=== PATIENT | male | born 1965 | race Caucasian/White ===

== ENCOUNTER 2016-10-18 09:49 | Emergency (ER) | payer BC ==
[2016-10-18 09:57] VITALS: BP 159/95
--- NOTE | 2016-10-18 10:55 | RAD ---
INDICATION: Left shoulder pain one day after a fall COMPARISON: None. TECHNIQUE: 4 views of the left shoulder were obtained. FINDINGS: The adequately corticated bones are in normal alignment. Joint spaces appear maintained. No fracture, dislocation or focal bony abnormality is seen. IMPRESSION: Normal radiograph of the left shoulder. If the patient's symptoms persist, follow-up imaging is recommended.
--- NOTE | 2016-10-18 10:58 | UC ---
Shoulder Pain HPI - HPI Summary HPI Summary: FELL AND LANDED DIRECTLY ONTO LEFT SHOULDER YESTERDAY WHILE UNLOADING LUMBER. HAS PAIN WITH ACTIVE MVMT LEFT SHOULDER. IS ABLE TO MOVE HIS SHOULDER IF HE USES HIS RIGHT ARM TO PASSIVELY MOVE HIS LEFT. NO SWELLING OR BRUISING. NO NUMBNESS OR TINGLING. - History of Current Complaint Chief Complaint: UCUpperExtremity Stated Complaint: SHOULDER COMPLAINT Time Seen by Provider: 10/18/16 10:23 Hx Obtained From: Patient Onset/Duration: Sudden Onset, Lasting Hours, Still Present Timing: Constant Severity Initially: Moderate Severity Currently: Moderate Location Of Pain: Is Discrete @ - LEFT SHOULDER Pain Intensity: 7 Pain Scale Used: 0-10 Numeric Character: Sharp Aggravating Factor(s): Movement Alleviating Factor(s): Rest Associated Signs And Symptoms: Positive: Negative Related History: Dominant Hand Right - Allergies/Home Medications Allergies/Adverse Reactions: Allergies Allergy/AdvReac Type Severity Reaction Status Date / Time No Known Allergies Allergy Verified 02/11/15 15:09 PMH/Surg Hx/FS Hx/Imm Hx Cardiovascular History: Hypertension - Surgical History Surgical History: None - Family History Known Family History: Positive: Hypertension - Social History Alcohol Use: None Substance Use Type: None Smoking Status (MU): Never Smoked Tobacco - Immunization History Most Recent Influenza Vaccination: 2013 Most Recent Tetanus Shot: unk Most Recent Pneumonia Vaccination: <5YEARS Review of Systems Constitutional: Negative Skin: Negative Respiratory: Negative Cardiovascular: Negative Gastrointestinal: Negative Musculoskeletal: Arthralgia, Decreased ROM, Myalgia All Other Systems Reviewed And Are Negative: Yes Physical Exam Triage Information Reviewed: Yes Appearance: Well-Appearing, No Pain Distress, Well-Nourished Vital Signs: Initial Vital Signs Temp 98.4 F 10/18/16 09:55 Pulse 74 10/18/16 09:55 Resp 20 10/18/16 09:55 BP 159/95 10/18/16 09:55 Pulse Ox 100 10/18/16 09:55 Vital Signs Reviewed: Yes Eyes: Positive: Conjunctiva Clear ENT: Positive: Hearing grossly normal Neck: Positive: Supple Respiratory: Positive: No respiratory distress, No accessory muscle use Cardiovascular: Positive: Pulses Normal Abdomen Description: Positive: Soft Musculoskeletal: Positive: No Edema, ROM Limited @ - LEFT SHOULDER LIMITIED WITH ACTIVE ROM. MUCH BETTER WITH PASSIVE ROM. NEG YERGASON. POSITIVE SPEEDS. Neurological: Positive: Alert Psychological: Positive: Age Appropriate Behavior Skin: Negative: rashes Diagnostics - Radiology LEFT SHOULDER XRAY Xray Interpretation: No Acute Changes Radiology Interpretation Completed By: Radiologist Shoulder Course/Dx - Course Course Of Treatment: XRAY UNREMARKABLE. SLING NEEDED. NOTE FOR WORK PROVIDED. FOLLOW-UP PCP OR ORTHO IF NOT IMPROVING. - Differential Dx/Diagnosis Differential Diagnosis/HQI/PQRI: AC Separation, Arthritis, Bursitis, Contusion, Rotator Cuff Injury Provider Diagnoses: LEFT SHOULDER SPRAIN Discharge - Discharge Plan Condition: Stable Disposition: HOME Prescriptions: Naproxen [Naproxen EC] 500 mg PO BID PRN #30 tab PRN Reason: Pain Patient Education Materials: Shoulder Sprain (ED) Forms: *Work Release Referrals: Jose L Gutiérrez MD [Medical Doctor] - If Needed Juan Harris MD [Primary Care Provider] - If Needed Additional Instructions: SHOULDER XRAYS UNREMARKABLE TODAY. REST AND WEAR THE SLING FOR COMFORT. NSAIDS FOR DISCOMFORT. FOLLOW-UP WITH YOUR PCP OR ORTHO IF YOU ARE NOT IMPROVING OVER THE NEXT WEEK OR SO.
== END 2016-10-18 11:25 | disposition home or self-care (01) ==
LOC: UCEAST 09:49
DX: S43.402A Unspecified sprain of left shoulder joint, initial encounter (principal); X50.3XXA Overexertion from repetitive movements, initial encounter; Y93.89 Activity, other specified; Y92.9 Unspecified place or not applicable; I10 Essential (primary) hypertension
CPT/HCPCS: 99213; G0463

== ENCOUNTER → 2019-01-16 | Day surgery (SDC) | payer BC ==
[~2019-01-16] MED LIST: Acetaminophen TAB* 325 MG PO PRN; Buffered Lidocaine 1% SYRIN* 1 ML/SYRINGE INTRADERM ONE; Dexamethasone IV* 4 MG/ML 1 ML (4 MG) ONE; DiMENhydriNATE IV* 50 MG/ML VIAL IV PUSH PRN; DiMENhydriNATE IV* 50 MG/ML VIAL ONE; Famotidine IV* 10 MG/ML 2 ML (20 mg) IV ONE; Famotidine IV* 10 MG/ML 2 ML (20 mg) ONE; HYDROmorphone INJ1* 1 MG/ML SYRINGE ONE; Ketorolac INJ* 30 MG/ML 1 ML VIAL ONE; Lactated Ringers 1000 ML Bag* 1,000 ML IV SCH; Lidocaine 1% MPF ** 5 ML VIAL ONE; Lidocaine 2% PF * 5 ML VIAL ONE; Midazolam* 1 MG/ML 5 ML VIAL (5 MG) ONE; Naloxone* 0.4 MG/ML 1 ML VIAL IV PRN; Ondansetron INJ* 2 MG/ML VIAL ONE; Propofol* 10 MG/ML 20 ML BTL ONE; ROPIVACAINE 5 MG/ML 30 ML BTL (0.5%) ONE; Ropivacaine 0.2% * 2 MG/ML VIAL ONE; ceFAZolin 2 GM in NS PREMIX(*) 2 GM/100 ML BAG IVPB ONE; fentaNYL* 50 MCG/ML 2 ML VIAL (100 MCG VIAL) ONE; oxyCODONE TAB* 5 MG TAB ONE; oxyCODONE TAB* 5 MG TAB PO PRN
[2019-01-16 17:37] VITALS: BP 143/92
--- NOTE | 2019-01-18 02:32 | OP ---
CC: PCP, Dr. Harris * DATE OF OPERATION: 01/16/19 - [facility] DATE OF : 65 SURGEON: Lisa Fierro MD. CRIME SCENE INVESTIGATOR: SANFORD Garner. An senior agricultural assistant was needed for the entirety of the case to help with positioning and retraction, and was utilized throughout all portions of the case. ANESTHESIOLOGIST: Dr. Salazar ANESTHESIA: General and interscalene block. PRE-OP DIAGNOSIS: Right shoulder full-thickness supraspinatus tear with bicipital tendonitis and tendinosis. POST-OP DIAGNOSIS: Right shoulder full-thickness supraspinatus tear with bicipital tendonitis and tendinosis. OPERATIVE PROCEDURE: Right shoulder arthroscopy with: 1. Extensive glenohumeral debridement including debridement of the anteroposterior superior labrum. 2. Subacromial decompression and acromioplasty for severe acromial spur. 3. Rotator cuff repair double row fashion of the supraspinatus with Regeneten patch augmentation. 4. Open biceps tenodesis. COMPLICATIONS: None. ESTIMATED BLOOD LOSS: Minimal. IMPLANTS USED: Two Healicoils, 2 MultiFixes, and one 2.8 Q-Fix. INDICATIONS: Darrius Workman is a 53-year-old male who has failed conservative management and has a diagnosis of full-thickness tear of the rotator cuff. He has elected to proceed with surgical treatment after the risks and benefits of surgery were discussed at length, which included but were not limited to bleeding, infection, damage to nerves; vessels; and surrounding structures, wound nonhealing, persistent pain, need for further surgery, scarring, stiffness , incomplete relief of symptoms, and risks of anesthesia. DESCRIPTION OF PROCEDURE: The patient was greeted in the preoperative area by the attending surgeon. The correct extremity was marked and consent was confirmed. The patient underwent interscalene nerve block by the anesthesiologist, after which he was brought back to the operating suite and placed in the supine position on the operating table. He underwent general anesthesia with endotracheal intubation, after which he was placed in the left lateral decubitus position with an axillary roll. All bony prominences were padded. He was secured with a pegboard. The right shoulder was prepped and draped in the usual sterile fashion, beginning with chlorhexidine soap, scrub, and alcohol wipe, and a final prep with ChloraPrep. After appropriate surgical pause indicating side, site, procedure, and administration of antibiotics, the standard postero-lateral portal was made sharply with an 11-blade. Scope was introduced into the joint and the joint was examined. There was abundant synovitis and erythema. There was an obvious full-thickness tear. The subscap had some partial-thickness tearing in the biceps. The superior labrum had tenderness with tendonitis. The anterior portal was made in an outside- in fashion. Shaver was used to debride back the anterior, posterior, and superior labrum and the biceps was tenotomized for later tenodesis. The scope was positioned in the subacromial space and the lateral portal was made in an outside-in fashion. A shaver was used to debride back the abundant thick bursa that was present. The undersurface of the acromion had a large anterolateral hooked acromion, which was debrided back using 4-0 oval sean. The CA ligament was peeled back. Once all excess debris was removed, attention was directed to the rotator cuff. There was evidence of a full-thickness tear, size small to medium tear of the rotator cuff in the U-shaped pattern. The greater tuberosity was skeletonized using the electrocautery device and the 4-0 oval sean was gently decorticated. Then, 2 Healicoil anchors were then placed about the medial row to allow for fixation of the rotator cuff. One was very anterior to allow for taoism of the U-shaped tear. After anchor placement, a small microfracture was done to allow for bony bleeding bed. The sutures were then passed. These were taped in and Ortho Braid sutures were passed in horizontal mattress configuration. They were then tied down using arthroscopic knot-tying technique. Then, the remaining strands, one from each knot, were passed through an anterolateral MultiFix anchor and then one through posterolateral MultiFix anchor for a double row repair. This was then augmented with a Regeneten patch to allow for fixation and for further healing. Once this was completed, attention was turned to the biceps. With the bed air planed to the right side, the anterior aspect of the shoulder was prepped using the ChloraPrep. The #15 blade was used to make an incision in line with the biceps tendon encompassing the inferior part of the pec. The soft tissues were carefully dissected bluntly and the biceps groove was palpated. The biceps was brought through the wound and had tenosynovitis and tendinopathy. The groove was then prepared in the usual fashion using electrocautery device with a bone rasp and osteotome. The Q-Fix was then drilled and deployed unicortically with good purchase. The sutures were then passed through the tendon 1 cm proximal to the musculotendinous junction in a Marcell-Alvino hook configuration. The excess stump was excised. The biceps was shuttled back to the wound and tied down. The wounds were copiously irrigated with sterile saline. The portals were closed with 3-0 nylon. The anterior portal was closed in layers with 3-0 Monocryl and the subcutaneous in running fashion. Sterile dressings were applied. A Cryo/Cuff and an UltraSling were applied. He was awoken from anesthesia and transferred to the PACU in stable condition. POSTOPERATIVE PLAN: He will be nonweightbearing. He will be discharged on pain medication. I will see the patient back in 10 to 14 days. DVT prophylaxis was considered, but deferred due to no previous personal or family history. [id number]/[facility] #: [id number] [facility] CENTERHina
== END | disposition home or self-care (01) ==
LOC: OR 09:49
PROVIDERS: ATTEND Orthopaedic Surgery
DX: M75.121 Complete rotator cuff tear or rupture of right shoulder, not specified as traumatic (principal); M75.21 Bicipital tendinitis, right shoulder; G89.18 Other acute postprocedural pain; M47.816 Spondylosis without myelopathy or radiculopathy, lumbar region
CPT/HCPCS: A9270-GY; C1713; C1776; J0690; J1100; J1170; J1240; J1885; J2250; J2405; J2704; J2795; J3010

== ENCOUNTER 2019-06-10 20:31 | Observation (INO) | payer BC ==
[2019-06-10] MEDS ORDERED: NS 0.9% 1000 ML** 2,000 ML IV ONE (20:39)
--- NOTE | 2019-06-10 20:43 | ED ---
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 He states that he was feeling normal throughout the day until arriving home from work when he began having nausea, vomiting, and diarrhea. He states that his bowel movements were watery. He vomited twice which prompted his first syncope. He states that his first two episodes were unwitnessed and he does not know if he had a head injury or not. He states that his heard the second thud and called EMS. He states centralized neck pain after the second and associated SOB. He states that the brace he presenting with lowers his pain in his neck and is currently a 9/10. He has aggravating pain when he moves his neck. He denies any fevers, chills, headaches, abdominal pain, hematuria, blood in his bowel, and numbness. He states that he was recently placed on steroids for a Rotator Cuff injury. He has no pertinent PMHx. - History Of Current Complaint Chief Complaint: EDSyncope Time Seen by Provider: 06/10/19 20:33 Hx Obtained From: Patient Onset/Duration: Sudden Onset, Resolved Timing: Intermittent Episode Lasting Context: Unwitnessed - 2, Witnessed - 3 Activity At Onset: Other - vomiting, other times at rest Associated Head Trauma: No Aggravating Factor(s): Other - neck movement Alleviating Factor(s): Nothing Associated Signs And Symptoms: Negative - fevers, chills, headaches, abdominal pain, hematuria, blood in his bowel, and numbness, Diarrhea, Pain - neck, Vomiting, Other - nausea Frequency: Episodes x___ - 5, Episodes Lasting ____ (in Mins/Days/Weeks/Years) - seconds - Allergies/Home Medications Allergies/Adverse Reactions: Allergies Allergy/AdvReac Type Severity Reaction Status Date / Time NSAIDS (Non-Steroidal Allergy Unknown See Comment Verified 01/09/19 08:49 Anti-Inflamma Home Medications: Home Medications Lisinopril [Zestril 5 MG-] 5 mg PO DAILY 06/10/19 [History Confirmed 06/10/19] PMH/Surg Hx/FS Hx/Imm Hx Previously Healthy: Yes Endocrine/Hematology History: Denies: Hx Diabetes Cardiovascular History: Reports: Other Cardiovascular Problems/Disorders - RBBB , left anterior fascicular block noted on 2014 EKG Denies: Hx Hypertension - hx of- resolved with gastric sleeve, Hx Pacemaker/ ICD Respiratory History: Reports: Hx Sleep Apnea - hx of resolved with gastric sleeve Denies: Hx Asthma History: Reports: Other Problems/Disorders - erectile dysfunction Denies: Hx Acute Renal Failure Musculoskeletal History: Reports: Hx Arthritis, Hx Back Problems Sensory History: Reports: Hx Contacts or Glasses - mainly for reading Denies: Hx Deafness, Hx Hearing Aid Opthamlomology History: Reports: Hx Contacts or Glasses - mainly for reading Neurological History: Reports: Other Neuro Impairments/Disorders - PAIN CLINIC INJECTIONS / RF LUMBAR 2017 Psychiatric History: Denies: Hx Autism, Hx Panic Disorder - Cancer History Hx Chemotherapy: No Hx Radiation Therapy: No - Surgical History Surgical History: Yes Surgery Procedure, Year, and Place: GASTRIC SLEEVE Hx Anesthesia Reactions: Yes - when coming out of anesthesia- vomited alot - Immunization History Date of Tetanus Vaccine: PT STATES UNSURE Date of Influenza Vaccine: 2012 Immunizations Up to Date: Yes Infectious Disease History: Yes Infectious Disease History: Denies: Hx Clostridium Difficile, Hx Hepatitis, Hx Human Immunodeficiency Virus (HIV), Hx of Known/Suspected MRSA, Hx Shingles, Hx Tuberculosis, Hx Known/ Suspected VRE, Hx Known/Suspected VRSA, History Other Infectious Disease, Traveled Outside the [place] in Last 30 Days - Family History Known Family History: Positive: Hypertension - Social History Occupation: Employed Full-time Lives: With Family Alcohol Use: Rare Hx Substance Use: No Substance Use Type: Reports: None Hx Tobacco Use: No Smoking Status (MU): Never Smoked Tobacco Review of Systems Negative: Fever, Chills Negative: Chest Pain Negative: Shortness Of Breath Positive: Vomiting, Diarrhea, Nausea. Negative: Abdominal Pain Negative: hematuria Musculoskeletal: Other - Neck pain Negative: Headache All Other Systems Reviewed And Are Negative: Yes Physical Exam - Summary Physical Exam Summary: Constitutional: Well-developed, Well-nourished,. (-) Distressed, Initially was unconscious on EMS stretcher, and awoke to verbal stimuli. Skin: Warm, Dry HENT: Normocephalic; Atraumatic, Dry oral mucosa Eyes: Conjunctiva normal Neck: Musculoskeletal ROM normal neck. (-) JVD, (-) Stridor, (-) Tracheal deviation Cardio: Rhythm regular, rate normal, Heart sounds normal; Intact distal pulses; Radial pulses are 2+ and symmetric. (-) Murmur Pulmonary/Chest wall: Effort normal. (-) Respiratory distress, (-) Wheezes, (-) Rales Abd: Soft, (-) tenderness, (-) Distension, (-) Guarding, (-) Rebound Musculoskeletal: (-) Edema, midline cervical spine tenderness Lymph: (-) Cervical adenopathy Neuro: Alert, Oriented x3 Psych: Mood and affect Normal Triage Information Reviewed: Yes Vital Signs On Initial Exam: Initial Vitals Temp Pulse Resp BP Pulse Ox 96 F 74 18 94/58 98 06/10/19 20:35 06/10/19 20:35 06/10/19 20:35 06/10/19 20:35 06/10/19 20:35 Vital Signs Reviewed: Yes Diagnostics - Vital Signs Vital Signs Temp Pulse Resp BP Pulse Ox 06/10/19 20:35 96 F 74 18 94/58 98 - Laboratory Result Diagrams: 06/10/19 21:25 Lab Statement: Any lab studies that have been ordered have been reviewed, and results considered in the medical decision making process. - EKG 2039 Cardiac Rate: NL - 67 BPM EKG Rhythm: Sinus Rhythm ST Segment: Normal Ectopy: None Summary of EKG Findings: NSR at 67 BPM with a RBBB, grossly unchanged from prior EKG on 10/22/15. Interpreted by Dr. Jamison at 204106/10/2019. Course/Dx Course Of Treatment: This pt will be signed out to Dr. Jordi Hickey, DO from Dr. Ger Jamison MD at shift change 2200 06/10/[address] scan, lab results, and disposistion. - Diagnoses Provider Diagnoses: Syncope, Vomiting, Dehydration, Hypotension Discharge ED - Sign-Out/Discharge Documenting (check all that apply): Sign-Out Patient Signing out patient TO: Omid Hickey - Discharge Plan Condition: Stable Referrals: Juan Harris MD [Primary Care Provider] - - Attestation Statements Document Initiated by Scribe: Yes Documenting Scribe: Neil Mckoy Provider For Whom Scribe is Documenting (Include Credential): Ger Jamison MD Scribe Attestation: Neil Guerrero, scribed for Ger Jamison MD on 06/10/19 at 2152. Status of Scribe Document: Ready
--- OUTSIDE RECORDS SUMMARY | 2019-06-10 20:44 | XMS REPORT | Continuity of Care Document ---
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 Medicine Problems Active Problems Provider Date Strain of rotator cuff capsule Lisa Fierro MD Onset: 12/01/2018 Social History Type Date Description Comments Sex Unknown ETOH Use Denies alcohol use Tobacco Use Start: Unknown Patient has never smoked Smoking Status Reviewed: 06/08/19 Patient has never smoked Allergies, Adverse Reactions, Alerts Description No Known Drug Allergies Medications Active Medications SIG Qnty Indications Ordering Provider Date Lisinopril 1 by mouth every Unknown 10mg Tablets day History Medications No Active Medications Unknown 04/11/2019 - 06/08/2019 Oxycodone-Acetaminophe 1 tabs by mouth 24tabs Lisa Fierro MD 2018 - n every 4-6 hours 02/27/2019 5-325mg Tablets as needed for pain Tramadol HCL 1 tablet by mouth 10tamagnus Fierro MD 12/13/2018 - 50mg Tablets at night as 01/16/2019 needed pain Immunizations Description No Information Available Vital Signs Date Vital Result Comment 06/08/2019 8:37am Height 69 inches 5'9" Weight 205.00 lb Heart Rate 74 /min BP Systolic 142 mmHg BP Diastolic 84 mmHg Respiratory Rate 16 /min Pain Level 2 O2 % BldC Oximetry 98 % BMI (Body Mass Index) 30.3 kg/m2 04/11/2019 7:59am Height 69 inches 5'9" Heart Rate 72 /min BP Systolic 130 mmHg BP Diastolic 70 mmHg Respiratory Rate 16 /min Body Temperature 97.8 F Pain Level 2 Results Description No Information Available Procedures Date Code Description Status 01/16/2019 16977 Arthroscopy Shoulder,W/Rotator Cuff Repair Completed 01/16/2019 15160 Arthroscopy Shoulder,W/Rotator Cuff Repair Completed 01/16/2019 74205 Arthroscopy,Shoulder Decompression Of Subacromial Space Completed W/Acromio 01/16/2019 88856 Arthroscopy,Shoulder Decompression Of Subacromial Space Completed W/Acromio 01/16/2019 93307 Tenodesis Biceps Long Tendon Completed 01/16/2019 09924 Tenodesis Biceps Long Tendon Completed Medical Devices Description No Information Available Encounters Description No Information Available Assessments Date Code Description Provider 06/08/2019 S46.011D Strain of muscle(s) and tendon(s) of the Les Gaitan MD rotator cuff of right shoulder, subsequent encounter 06/08/2019 M75.21 Bicipital tendinitis, right shoulder Les Gaitan MD 04/11/2019 S46.011D Strain of muscle(s) and tendon(s) of the Lisa Fierro MD rotator cuff of right shoulder, subsequent encounter 04/11/2019 M75.21 Bicipital tendinitis, right shoulder Lisa Fierro MD 02/28/2019 S46.011D Strain of muscle(s) and tendon(s) of the Lisa Fierro MD rotator cuff of right shoulder, subsequent encounter 02/28/2019 M75.21 Bicipital tendinitis, right shoulder Lisa Fierro MD 01/26/2019 S46.011D Strain of muscle(s) and tendon(s) of the Lisa Fierro MD rotator cuff of right shoulder, subsequent encounter 01/26/2019 M75.21 Bicipital tendinitis, right shoulder Lisa Fierro MD 01/16/2019 S46.011A Strain of muscle(s) and tendon(s) of the Inessa Dailey PA-C rotator cuff of right shoulder, initial encounter 01/16/2019 M75.21 Bicipital tendinitis, right shoulder SANFORD Garner 01/16/2019 S46.011A Strain of muscle(s) and tendon(s) of the Lisa Fierro MD rotator cuff of right shoulder, initial encounter 01/16/2019 M75.21 Bicipital tendinitis, right shoulder Lisa Fierro MD 01/06/2019 M75.121 Complete rotator cuff tear or rupture of Lisa Fierro MD right shoulder, not specified as traumatic Plan of Treatment No Information Available Functional Status Description No Information Available Mental Status Description No Information Available Referrals Description No Information Available
--- OUTSIDE RECORDS SUMMARY | 2019-06-10 20:44 | XMS REPORT | Summary of Care ---
:1965 Author Organization [facility] Address [address] [place] [address] Care Team Providers Name Role Phone Juan Harris Primary Care Provider Reason for Visit Reason Comments Diabetes Follow up. Patient states his A1C was done by Mariel La. Encounter Details Date Type Department Care Team Description 05/15/2019 Office Visit [place] [facility] Juan Harris, Essential hypertension, benign (Primary Dx); Medicine Microalbuminuria; [address] BMI 31.0-31.9,[place] [address] [place] [address] [phone] Allergies No Known Allergiesdocumented as of this encounter (statuses as of 05/15/2019) Medications Medication Sig Dispensed Refills Start Date End Date Status Naproxen Sodium Take by 0 Discontinued (ALEVE) 220 MG Oral mouth. 0 (Error) Tab pneumococcal Inject 0.5 1 vial 0 02/23/2018 Discontinued polysaccharide mL within a 0 (Error) (PNEUMOVAX,PPSV23) muscle ONE 25 MCG/0.5ML TIME. 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 Overview: S/p INH 2012 Essential hypertension, benign 04/19/2013 documented as of this encounter (statuses as of 05/15/2019) Resolved Problems Problem Noted Date Resolved Date Controlled type 2 diabetes mellitus without complication, 06/01/20172019 without long-term current use of insulin Overview: Hemoglobin A1C 6.28 may 2017 [facility] 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 05/15/2019 radiculopathy Obesity (BMI 30-39.9) 04/19/2013 02/23/2018 Overview: bmi 39 03/2013 Weight 300 pounds early 2012 lost 50 pounds late 2012 to 250 pounds 01/2013 Low back pain 04/19/2013 02/23/2018 documented as of this encounter (statuses as of 05/15/2019) Immunizations Name Administration Dates Next Due Influenza (IM) Preservative Free 12/20/2017 PNEUMOCOCCAL POLYSACCHARIDE VACCINE 02/23/2018 documented as of this encounter Social History Tobacco Use Types Packs/Day Years Used Date Never Smoker Smokeless Tobacco: Never Used Alcohol Use Drinks/Week oz/Week Comments Yes rarely Sex Assigned at Date Recorded Not on file documented as of this encounter Last Filed Vital Signs Vital Sign Reading Time Taken Comments Blood Pressure 142/90 05/15/2019 8:50 AM EST Pulse 74 05/15/2019 8:50 AM EST Temperature - - Respiratory Rate - - Oxygen Saturation - - Inhaled Oxygen Concentration - - Weight 95.3 kg (210 lb) 05/15/2019 8:50 AM EST Height 175.3 cm (5' 9") 05/15/2019 8:50 AM EST Body Mass Index 31.01 05/15/2019 8:50 AM EST documented in this encounter Patient Instructions Patient InstructionsJuan Harris MD - 05/15/2019 8:40 AM ESTUrine test today Please check your blood pressure at home, mall, pharmacy, or grocery store three times per week. Write these numbers down and bring them into your next doctor visit. The goal blood pressure for you is less than : 140/90 Goal weight 190 -200 pounds documented in this encounter Progress Notes Juan Harris MD - 05/15/2019 8:40 AM EST PATIENT: Darrius Workman : 1965 DATE OF SERVICE: 05/15/2019 CHIEF COMPLAINT: Chief Complaint Patient presents with ? Diabetes Follow up. Patient states his A1C was done by Mariel La. Subjective HISTORY OF PRESENT ILLNESS: Darrius Workman is a 53-y.o. male. HPI Here for follow up pre diabetes mellitus and hypertension blood pressure was 140 -150/90-94 [facility] he has gastric sleeve surgery and has lost about 100 pounds he had shoulder surgery and regained some weight recently Wt Readings from Last 3 Encounters: 05/15/19 210 lb (95.3 kg) 02/23/18 196 lb (88.9 kg) 11/11/17 224 lb (101.6 kg) his home blood pressure is 110-130/80 range he is not sure his home blood pressure machine works well No cardiovascular symptoms His last two hemoglobin A1Cs are 5.2 and 5.7 off medication he has lipid testing Lab Results Component Value Date CHOL 176 03/14/2019 TRIG 93 03/14/2019 HDL 55 03/14/2019 LDL 102 (H) 03/14/2019 LDLHDLRATIO 1.9 03/14/2019 CHOLHDLRATIO 3.2 03/14/2019 Positive urine microalbumin test normal creatinine in the past Patient Active Problem List Diagnosis ? Essential hypertension, benign ? Positive PPD ? Impotence of organic origin ? Family history of prostate cancer ? S/P bariatric surgery Family History Problem Relation Age of Onset ? Respiratory Mother ? Heart Mother ? Cancer Father ? Alcohol/Drug Sister No current outpatient medications on file. No current facility-administered medications for this visit. No Known Allergies Social History Socioeconomic History ? Marital status: Spouse name: Not on file ? Number of children: Not on file ? Years of education: Not on file ? Highest education level: Not on file Occupational History ? Not on file Social Needs ? Financial resource strain: Not on file ? Food insecurity Worry: Not on file Inability: Not on file ? Transportation needs Medical: Not on file Non-medical: Not on file Tobacco Use ? Smoking status: Never Smoker ? Smokeless tobacco: Never Used Substance and Sexual Activity ? Alcohol use: Yes Comment: rarely ? Drug use: No ? Sexual activity: Yes Partners: Female Lifestyle ? Physical activity Days per week: Not on file Minutes per session: Not on file ? Stress: Not on file Relationships ? Social connections Talks on phone: Not on file Gets together: Not on file Attends scientology service: Not on file Active member of club or organization: Not on file Attends meetings of clubs or organizations: Not on file Relationship status: Not on file ? Intimate partner violence Fear of current or ex partner: Not on file Emotionally abused: Not on file Physically abused: Not on file Forced sexual activity: Not on file Other Topics Concern ? Not on file Social History Narrative Lives in [facility] with 5 kids range in age 27 years to 17. 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 Physical Exam Sensory exam of the foot is normal, tested with the monofilament. Good pulses , no lesions or ulcers, good peripheral pulses. S1 and S2 normal, no murmurs, clicks, gallops or rubs. Regular rate and rhythm. Chest is clear; no wheezes or rales. No edema or JVD. I spent 25 minutes with the patient, greater than half of this in direct face to face counseling addressing the current condition and the plan of care. ASSESSMENT / IMPRESSION: ICD-9-CM ICD-10-CM 1. Essential hypertension, benign monitor blood pressure no medication for now follow up me 2 month diet exercise And weight loss 401.1 I10 2. Microalbuminuria repeat today 791.0 R80.9 MICROALBUMIN, RANDOM URINE W/ CREATININE 3. BMI 31.0-31.9,adult V85.31 Z68.31 Patient Instructions Urine test today Please check your blood pressure at home, mall, pharmacy, or grocery store three times per week. Write these numbers down and bring them into your next doctor visit. The goal blood pressure for you is less than : 140/90 Goal weight 190 -200 pounds Juan Harris MD 05/15/2019 10:05 documented in this encounter Plan of Treatment Date Type Specialty Care Team Description 07/12/2019 Office Visit Internal Medicine Juan Harris MD [address] [place] [address] [phone] Name Type Priority Associated Diagnoses Date/Time MICROALBUMIN, RANDOM URINE Lab Routine Microalbuminuria 05/15/2019 9:49 AM EST W/ CREATININE Health Maintenance Due Date Last Done Comments DTaP/Tdap/Td Vaccines (1 - 1976 Tdap) ZOSTER IMMUNIZATION SERIES 11/13/2015 (1 of 2) DEPRESSION SCREENING 07/09/2018 07/09/2017 FOOT EXAM 07/09/2018 07/09/2017, 07/09/2017, 07/09/2017, Additional history exists INFLUENZA VACCINE (#1) 2018 12/20/2017 HEMOGLOBIN A1C 11/26/2018 05/26/2018, 02/16/2018, 10/08/2017, Additional history exists LIPID DISORDER SCREENING 03/14/2020 03/14/2019, 05/26/2018, 02/16/2018, Additional history exists URINE MICROALBUMIN 03/14/2020 03/14/2019, 07/02/2017, 05/28/2017 Diabetic Eye Exam 10/13/2020 10/13/2018, 08/24/2018 Colonoscopy 08/12/2021 08/12/2016 PNEUMOCOCCAL 0-64 YRS Completed 02/23/2018 HEPATITIS A IMMUNIZATION Aged Out No longer eligible SERIES based on patient's age to complete this topic HPV IMMUNIZATION SERIES Aged Out No longer eligible based on patient's age to complete this topic MENINGOCOCCAL VACCINE IMM Aged Out No longer eligible based on patient's age to complete this topic documented as of this encounter Goals Goal Patient Goal Associated Recent Patient-Stated? Author Type Problems Progress Blood Pressure Blood Pressure Essential 142/90 No [place], < 140/90 hypertension, (05/15/2019 Juan Murrieta, benign 8:50 AM EST) Note: Hypertension Care Plan Based on the patient's clinical history and according to JNC 8 guidelines target blood pressure goal is less than 140/90. Based on the patient's last blood pressure of BP: 132/82 mmHg the patient is at at goal. As your provider, it is important that I advise you regarding: your current medications and help you with any challenges you may face taking your medications as directed (ex. instructions, cost, side effects, and interactions). Important lifestyle changes: exercise, weight reduction and dietary sodium reduction your clinical goals and how you can achieve success: weight reduction, exercise plan and diet improvements medication management: N/A diet only patient education/self-management tools provided: Current self-management tools adequate To successfully manage my Hypertension I will: monitor my blood pressure daily, understanding that my goal is less than 140/ 90 per my healthcare provider's recommendation. I will schedule an appointment with my provider if consistent abnormal readings greater than 160/100. take medications every day as prescribed by my healthcare provider and if unable to take them I will discuss with my provider. monitor for symptoms of chest pain, chest tightness/pressure, irregular heartbeat, persistent dizziness, radiating arm pain, and neck or jaw pain. If any of these symptoms are noticed I will seek medical attention immediately by calling 911 exercise/walk 30 minutes 7 day(s) per week. If I experience chest pain, chest tightness, or shortness of breath, I will seek medical attention immediately. follow a diet rich in fruits, vegetables, and low-fat dairy products with reduced content of saturated & total fat. I will reduce my sodium intake daily. An example is the DASH diet. To obtain more information please refer to the DASH Eating Plan listed in Educational Resources. record my blood pressure results. Mach[employer] is safe and secure way for you to do this in your medical record online. try to obtain an ideal body weight. My recent weight was Weight: 248 lb ( 112.492 kg). My weight loss goal for my next office visit is 225 pounds . limit alcohol consumption. For men two drinks per day and women one drink per day. if currently smoking, will discuss how to quit smoking with my healthcare provider and work towards quitting. Educational Resources: National Heart, Lung, & Blood [place] http://nhlbi.nih.gov/hbp/index.html The DASH Diet Eating Plan http://www.nhlbi.nih.gov/health/health-topics/ topics/dash/ Academy of Nutrition & DIetetics http://eatright.org National Smoking Cessation Site http://smokefree.gov Blood Pressure Blood Pressure Essential 142/90 (05/15/2019 No [place], < 140/90 hypertension, benign 8:50 AM EST) Juan Murrieta MD Note: Hypertension Care Plan Based on the patient's clinical history and according to JNC 8 guidelines target blood pressure goal is less than 140/90. Based on the patient's last blood pressure of BP: 112/78 mmHg the patient is at at goal. As your provider, it is important that I advise you regarding: your current medications and help you with any challenges you may face taking your medications as directed (ex. instructions, cost, side effects, and interactions). Important lifestyle changes: exercise, weight reduction and dietary sodium reduction your clinical goals and how you can achieve success: weight reduction, exercise plan and diet improvements medication management: N/A diet only patient education/self-management tools provided: Current self-management tools adequate To successfully manage my Hypertension I will: monitor my blood pressure daily, understanding that my goal is less than 140/ 90 per my healthcare provider's recommendation. I will schedule an appointment with my provider if consistent abnormal readings greater than 160/100. take medications every day as prescribed by my healthcare provider and if unable to take them I will discuss with my provider. monitor for symptoms of chest pain, chest tightness/pressure, irregular heartbeat, persistent dizziness, radiating arm pain, and neck or jaw pain. If any of these symptoms are noticed I will seek medical attention immediately by calling 911 exercise/walk 30 minutes 6 day(s) per week. If I experience chest pain, chest tightness, or shortness of breath, I will seek medical attention immediately. follow a diet rich in fruits, vegetables, and low-fat dairy products with reduced content of saturated & total fat. I will reduce my sodium intake daily. An example is the DASH diet. To obtain more information please refer to the DASH Eating Plan listed in Educational Resources. record my blood pressure results. Abe is safe and secure way for you to do this in your medical record online. try to obtain an ideal body weight. My recent weight was Weight: 247 lb ( 112.038 kg). My weight loss goal for my next office visit is 235. limit alcohol consumption. For men two drinks per day and women one drink per day. if currently smoking, will discuss how to quit smoking with my healthcare provider and work towards quitting. Educational Resources: National Heart, Lung, & Blood [place] http://nhlbi.nih.gov/hbp/index.html The DASH Diet Eating Plan http://www.nhlbi.nih.gov/health/health-topics/ topics/dash/ Academy of Nutrition & DIetetics http://eatright.org National Smoking Cessation Site http://smokefree.gov Blood Pressure < Blood Pressure 142/90 (05/15/2019 8:50 No Juan Harris, 140/90 AM EST) Note: This is an individualized treatment (blood pressure) goal for Darrius Workman: Displayed above (on the left) is your goal for blood pressure control. Your most recent blood pressure is also shown above, on the right. You should try to achieve blood pressures that are lower than your goal listed above (on the left). Glycohemoglobin A1c < 7.0 Diabetes 5.7 (05/26/2018 8:56 AM Juan Ryder EST) MD Note: This is an individualized treatment (diabetes control, HgbA1C) goal for Darrius Workman: Displayed above is your progress towards your HgbA1C goal. Your goal is shown above (on the left); your most recent HgbA1C is shown on the right. Note that lower numbers are better. Weight loss vs. 18 mo Lifestyle 0 (05/15/2019 8:50 AM Juan Ryder MD max (lbs) >= 10 EST) Note: This is an individualized lifestyle goal for Darrius Workman: Your body mass index (BMI) is more than 30. You should lose weight. A reasonable starting goal is to lose 10 pounds. Displayed above is how many pounds you have lost thus far towards your 10 pound weight loss goal. Keep immunizations current Lifestyle Juan Ryder MD Note: This is an individualized lifestyle goal for Darrius Workman: Please be sure to keep up-to-date on recommended immunizations. For example, this would include a yearly influenza vaccine. Immunization status can be seen by looking at the Health Maintenance sections of your [facility], Plan of Care, and any After Visit Summaries. Take all prescribed medications as Self-management Juan Ryder MD directed Note: This is an individualized self-management goal for Darrius Workman: Please take all prescribed medications as directed. 1. Do not skip doses. If you cannot afford your medications, talk with your doctor. 2. Use a pill reminder system such as a pill box if needed. Your pharmacist can help you with this. 3. Contact your Pharmacy 5 days before your medication runs out. If you cannot take your medications for any reasons, talk with your doctor. 4. Please bring all of your medication bottles and inhalers (or a list of all your medications/inhalers) with you to every visit. Potential barriers to meeting all of your care plan goals will continue to be addressed on an ongoing basis. documented as of this encounter Results Not on filedocumented in this encounter Visit Diagnoses Diagnosis Essential hypertension, benign Microalbuminuria Proteinuria BMI 31.0-31.9,adult Body Mass Index 31.0-31.9, adult documented in this encounter Insurance Payer Benefit Plan / Subscriber ID Effective Dates Phone Address Type Group LYNDON PADILLA [id number] 2014-Present Lyndon DURON PPO Guarantor Name Account Type Relation to Date of Phone Billing Address Patient Darrius Workman Personal/Family 1965 [address] [phone] [place], [place] (Work) [id number] documented as of this encounter
[2019-06-10] MEDS ORDERED: Ondansetron INJ* 2 MG/ML VIAL IV ONE (20:47)
[2019-06-10 21:34] LABS: Hematocrit 53 % (42-52); Hemoglobin 17.9 g/dL (14.0-18.0); Mean Corpuscular HGB Conc 34 g/dL (31-36); Mean Corpuscular Hemoglobin 27 pg (27-31); Mean Corpuscular Volume 80 fL (80-94); Mean Platelet Volume 8.4 fL (7.4-10.4); Platelet Count 284 10^3/uL (150-450); Red Blood Count 6.59 10^6 /uL (4.18-5.48); Red Cell Distribution Width 15 % (10-15); White Blood Count 20.5 10^3/uL (3.5-10.8)
[2019-06-10 21:35] LABS: ABS Basophils 0.1 10^3/ul (0-0.2); ABS Lymphocytes 1.3 10^3/ul (1.0-4.8); ABS Monocytes 1.6 10^3/ul (0-0.8); ABS Neutrophils 17.4 10^3/ul (1.5-7.7); Eosinophil % 0.2 %; Lymphocyte % 6.4 %; Nucleated Red Blood Cells % 0.1
[2019-06-10 21:52] LABS: Albumin 4.9 g/dL (3.2-5.2); Albumin/Globulin Ratio 1.3 (1-3); BUN/Creatinine Ratio 12.3 (8-20); C Reactive Protein 2.18 mg/L (<8.01); Calcium 10.3 mg/dL (8.6-10.3); EGFR African American 57.5 (>60); EGFR Non-African American 47.5 (>60); Globulin 3.9 g/dL (2-4); Total Bilirubin 0.5 mg/dL (0.2-1.0); Total Protein 8.8 g/dL (6.4-8.9)
--- NOTE | 2019-06-10 21:55 | ED ---
Progress - Progress Note Progress Note: Patient is received as a sign out from Dr. Jamison at 2200 on 06/10/[address] cervical spine. Home Medications Medication Instructions Recorded Confirmed Type Lisinopril [Zestril 5 MG-] 5 mg PO DAILY 06/10/19 06/10/19 History Bloodwork was obtained, abnormal values include WBC 20.5 and lactic acid 2.7. Repeat WBC and lactic were 19.9 and 3.4 respectively. Other abnormal values include BNP 318, glucose 152, creatinine 1.53, anion gap 12, carbon dioxide 19, sodium 134, absolute monos 1.6, absolute neuts 17.4, Hct 53, RBC 6.59. 2043: Cervical Spine CT IMPRESSION: 1. No acute osseous abnormality. 2. High-grade central canal stenosis at C2-C3 and C3-C4. MRI as clinically warranted. This CT was reviewed by Dr. Hickey. 0020: Dr. Hickey discussed the care of the patient with Dr. Shaikh. Dr. Shaikh agreed to admit the patient. - EKG/XRAY/CT CT: See in Progress Note Course/Dx - Course Course Of Treatment: Patient is received as a sign out from Dr. Jamison at 2200 on 06/10/[address] cervical spine. Bloodwork was obtained, abnormal values include WBC 20.5 and lactic acid 2.7. Repeat WBC and lactic were 19.9 and 3.4 respectively. Other abnormal values include BNP 318, glucose 152, creatinine 1.53, anion gap 12, carbon dioxide 19, sodium 134, absolute monos 1.6, absolute neuts 17.4, Hct 53, RBC 6.59. 2043: Cervical Spine CT. IMPRESSION: 1. No acute osseous abnormality. 2. High-grade central canal stenosis at C2-C3 and C3-C4. MRI as clinically. warranted. 0020: Dr. Hickey discussed the care of the patient with Dr. Shaikh. Dr. Shaikh agreed to admit the patient. - Diagnoses Provider Diagnoses: Syncope, Vomiting, Dehydration, Hypotension, Leukocytosis, Elevated lactic acid level - Provider Notifications Discussed Care Of Patient With: Soham Shaikh Time Discussed With Above Provider: 00:20 Instructed by Provider To: Other - Dr. Hickey discussed the care of the patient with Dr. Shaikh. Dr. Shaikh agreed to admit the patient. Discharge ED - Sign-Out/Discharge Documenting (check all that apply): Patient Departure - Admit - Discharge Plan Condition: Stable Disposition: ADMITTED TO [facility] - Billing Disposition and Condition Condition: STABLE Disposition: Admitted to [facility] - Attestation Statements Document Initiated by Scribe: Yes Documenting Scribe: Naty Whitfield Provider For Whom Scribe is Documenting (Include Credential): Jordi Hickey DO Scribe Attestation: Naty Guerrero, scribed for Jordi Hickey DO on at 0357. Scribe Documentation Reviewed: Yes Provider Attestation: The documentation as recorded by the tia, Naty Whitfield accurately reflects the service I personally performed and the decisions made by Jordi newton DO Status of Scribe Document: Viewed
[2019-06-10 22:32] LABS: Potassium 4.3 mmol/L (3.5-5.0)
[2019-06-11] MEDS ORDERED: NS 0.9% 1000 ML** 1,000 ML IV ONE (00:33)
[2019-06-11] MEDS ORDERED: Ondansetron INJ* 2 MG/ML VIAL IV PRN (01:21)
[2019-06-11] MEDS ORDERED: Acetaminophen TAB* 325 MG PO PRN (01:21)
[2019-06-11] MEDS ORDERED: Al Hydrox/Mg Hydrox/Simet LIQ* 30 ML UDC PO PRN (01:21)
[2019-06-11] MEDS ORDERED: oxyCODONE/Acetamin 5/325 MG* TAB PO PRN ×2 (01:46→01:47)
[2019-06-11] MEDS ORDERED: Ketorolac INJ* 30 MG/ML 1 ML VIAL IV PUSH PRN (01:46)
[2019-06-11] MEDS ORDERED: Enoxaparin(*) 40 MG/0.4 ML SYR SUBCUT SCH (02:00)
[2019-06-11] MEDS: NS 0.9% 1000 ML** 1,000 ML IV SCH ×2 (03:29→03:59)
[2019-06-11] MEDS: Cyclobenzaprine TAB* 10 MG PO PRN ×2 (03:41→09:04)
--- NOTE | 2019-06-11 04:06 | HP ---
CC: Dr. Harris * HISTORY AND PHYSICAL: DATE OF ADMISSION: 06/11/19 PROVIDER: SANFORD Baltazar ATTENDING PHYSICIAN WHILE IN THE HOSPITAL: Soham Shaikh DO * (dictated by SANFROD Baltazar) PRIMARY CARE PROVIDER: Dr. Harris. CHIEF COMPLAINT: Syncope, nausea, vomiting, and diarrhea. HISTORY OF PRESENT ILLNESS: Darrius Workman is a 53-year-old white male with past medical history significant for hypertension, who presents to emergency department today after 2 syncopal episodes in the setting of nausea, vomiting, and diarrhea. The patient, on the day of presentation to the emergency department on 06/10/19, was in his normal state of health and then ate a piece of cold pizza that he left out overnight and approximately 2 hours later had a sudden onset of feeling of need to vomit. He did not have lingering nausea to any period and then at that point, he started having diarrhea. He denies blood in his vomitus or in his stool. To this point, he has had a total of 2 to 3 episodes of vomiting and 5 episodes of diarrhea. He did have an additional episode of diarrhea while he was in the emergency department, but he has not had any further nausea or vomiting. He has not had any abdominal pain at all. He notes at one time sensation of left-sided flank pain, which went away on its own in brief period of time. He felt this sensation after retching or vomiting. He thinks it was likely muscular. He denies any fevers or chills, shortness of breath, chest pain. Of note, his was having similar symptoms of nausea, vomiting, and diarrhea 2 days ago. The patient was vomiting into the sink if he could not make it to the toilet. When he stood up, he felt lightheaded and "the next thing I knew, I was on the floor." He was able to get up from the bathroom and get back to his living room, but later after another episode of vomiting, he tried to walk out of the bathroom and took about 8 steps and again syncopized. Both of these times, he does believe he hit his head and did experience loss of consciousness. He is unclear for what period of time, but he believes it is brief. After the second episode of syncope, he felt extreme neck pain and called EMS because he felt like he had generalized weakness and felt he would not be strong enough to walk. Of note, the patient started taking a Medrol Dosepak on 06/09/[address] Gaitan due to presumed rotator cuff injury. The patient tells me that he wishes to discontinue this medicine at this point due to this presentation today. The patient denies unilateral weakness, numbness, or tingling and paresthesias, anesthesias, or weakness in his upper extremities. PAST MEDICAL HISTORY: 1. Hypertension. 2. Prior history of prediabetes prior to gastric sleeve surgery. PAST SURGICAL HISTORY: 1. Vasectomy. 2. Gastric sleeve. HOME MEDICATIONS: 1. Lisinopril 5 mg p.o. daily. 2. Medrol Dosepak (20 mg of methylprednisolone, tapered by 4 mg over 6 days). ALLERGIES: No known drug allergies, but the patient notes that he was advised by his doctor not to take NSAIDs due to his gastric sleeve surgery. FAMILY HISTORY: Mother of COPD in her 70s. Father of prostate cancer at age 51. SOCIAL HISTORY: The patient lives with his and granddaughter. He has 5 adult children. 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 He denies smoking and he has never been smoker. Denies alcohol use and denies illicit drug use. His surrogate medical decision maker is his , Reba Workman, her phone number is . REVIEW OF SYSTEMS: An 11-point review of systems was completed. All pertinent positives and negatives are above in the HPI. All other systems are negative. PHYSICAL EXAMINATION GENERAL: A middle-aged white male, lying in hospital bed, appearing comfortable , in no acute distress. VITAL SIGNS: Temperature 96, heart rate 74, respiratory rate 18, oxygen saturation 98% on room air, blood pressure 94/58. Later, orthostatic vitals were obtained with blood pressure supine was 102/69 and standing blood pressure was 70/47. HEENT: Eyes: PERRLA. Sclerae anicteric. ENT: Mucous membranes are moist. NECK: Rotation of neck laterally and posteriorly with full range of motion, but limited anterior motion of neck. No tenderness to palpation throughout the spinous processes of cervical spine. LUNGS: Clear to auscultation throughout. CARDIO: Regular rate and rhythm without murmurs, rubs, or gallops. ABDOMEN: Normoactive bowel sounds x4 quadrants. Abdomen is soft, nontender, nondistended. EXTREMITIES: No clubbing, cyanosis, or edema. NEURO: The patient is alert and oriented x3. No focal deficits. Able to move all extremities. Strength is 5/5 in bilateral lower extremities and upper extremities. Sensation to light touch is grossly intact throughout. SKIN: Warm, dry, and intact. PERTINENT STUDIES/LAB DATA: White blood cell count 20.5, hemoglobin 17.9, hematocrit 53, platelet count 284. Sodium 134, potassium 4.3, chloride 103, carbon dioxide 19, anion gap 12, BUN 19, creatinine 1.54, glucose 152. Lactic acid 2.7 and later 3.4 after fluids. Calcium 10.3. Total bili 0.5, AST 27, ALT 33, alk phos 82. Troponin 0.00. CRP 2.18. BNP is 318. CT of the cervical spine, impression: No acute osseous abnormality. High- grade central canal stenosis at C2-C3 and C3-C4. EKG: Normal sinus rhythm, normal axis. It appears that the patient has a bifascicular block on previous EKG in 2016. He had a right bundle-branch block. ASSESSMENT AND PLAN: Darrius Workman is a 53-year-old white male with past medical history significant for hypertension, who presents to emergency department with 2 episodes of syncope in the setting of nausea, vomiting, and diarrhea. The patient will be admitted for: 1. Syncope. It appears this patient is experiencing syncope due to significant dehydration in the setting of volume loss from vomiting and diarrhea. The patient is orthostatic in the emergency department even after receiving 2 L of fluids. I am going to continue giving this patient normal saline at 100 cc per hour. I believe his lactic acidosis is due to dehydration and I do not suspect sepsis. I will repeat his lactic acid to ensure it is improving. Due to the patient's syncope, he did suffer some head fall, I will order a CT of the brain to rule out any acute abnormality. I will order telemetry because considering the patient does have a new bifascicular block and previously only had right bundle-branch block, it would be worth monitoring for any acute arrhythmias, though the etiology of the syncope is most likely due to hypotension and hypovolemia. 2. Nausea, vomiting, diarrhea. I believe the patient is experiencing a viral gastroenteritis that he likely was exposed to due to his experiencing the same symptoms. It is quite possible it may be more of a bacterial etiology from the old pizza that he ate that was lying at room temperature. For this reason, I will not be giving him loperamide for his diarrhea. At this point, he is no longer nauseous or vomiting, but I will continue p.r.n. Zofran. He has not been experiencing his abdominal pain and his abdominal exam is entirely benign. For this reason, I will not be performing any imaging of the abdomen; however, if this is to change, then imaging would be warranted. 3. Acute kidney injury. The patient has a creatinine elevated to 1.5 and his baseline is around 0.9. This is likely prerenal in the setting of acute dehydration from vomiting and diarrhea. I will be running continuous fluids as previously mentioned. 4. Neck pain. I believe this neck pain is likely muscular in the setting of his recent fall from syncope. Acute cervical spine fracture has been ruled out , though he does have high-grade stenosis, which I advised him to follow up with his PCP. He is not currently symptomatic of this. He denies any paresthesias, anesthesias, or weakness in his upper extremities. For his neck pain, I will order Flexeril as well as other oral pain control including Tylenol and I think Toradol is acceptable at this time due to his feeling as if his neck has limited movement. He does tell me that he is typically unable to fully anteriorly move his neck forward. 5. Hypertension. I will be holding the patient's home lisinopril in the setting of acute kidney injury as well as his hypotension. 6. History of prediabetes. It appears that the patient had hemoglobin A1c in January, which was normal and the patient's gastric sleeve surgery and resultant weight loss resolved this. 7. DVT prophylaxis. The patient has DVT risk score of 2 and I will order Lovenox. 8. Code status. The patient is full code. This case has been reviewed with my attending, Dr. Soham Shaikh, and he agrees with the plan of care. TIME SPENT: Approximately 35 minutes was spent on this admission, approximately half of the time was spent at bedside evaluating the patient and discussing the plan of care. ILIANA BUCHANAN, SANFORD [id number]/[facility] #: [id number] [facility] HOSPITALHina
[2019-06-11 08:52] LABS: ABS Lymphocytes 1.2 10^3/ul (1.0-4.8); ABS Monocytes 0.7 10^3/ul (0-0.8); ABS Neutrophils 8.1 10^3/ul (1.5-7.7); Eosinophil % 0.3 %; Hematocrit 43 % (42-52); Hemoglobin 14.7 g/dL (14.0-18.0); Mean Corpuscular HGB Conc 34 g/dL (31-36); Mean Corpuscular Hemoglobin 28 pg (27-31); Mean Corpuscular Volume 80 fL (80-94); Mean Platelet Volume 8.4 fL (7.4-10.4); Nucleated Red Blood Cells % 0.1; Platelet Count 194 10^3/uL (150-450); Red Blood Count 5.35 10^6 /uL (4.18-5.48); Red Cell Distribution Width 14 % (10-15); White Blood Count 10.1 10^3/uL (3.5-10.8)
[2019-06-11 09:05] LABS: CO2 Carbon Dioxide 22 mmol/L (22-32); Calcium 8.5 mg/dL (8.6-10.3); Chloride 109 mmol/L (101-111); Sodium 137 mmol/L (135-145)
[2019-06-11 09:11] LABS: BUN/Creatinine Ratio 21.9 (8-20); Blood Urea Nitrogen 21 mg/dL (6-24); EGFR African American 99.1 (>60); EGFR Non-African American 81.9 (>60); Glucose 106 mg/dL (70-100)
[2019-06-11 10:16] LABS: Anion Gap 6 mmol/L (2-11)
[2019-06-11 13:15] VITALS: BP 115/68
--- NOTE | 2019-06-11 20:56 | DS ---
CC: Dr. Juan Harris * DISCHARGE SUMMARY: DATE OF ADMISSION: 06/11/19 DATE OF DISCHARGE: 06/11/19 PRIMARY CARE PROVIDER: Dr. Juan Harris. ATTENDING PHYSICIAN: Elif Harden DO * (DICTATED BY DOLLY COFFEY NP) PRIMARY DIAGNOSES: 1. Orthostatic hypotension secondary to dehydration. 2. Viral gastroenteritis. 3. Acute kidney injury. SECONDARY DIAGNOSIS: Hypertension. STUDIES WHILE IN THE HOSPITAL: 1. Cervical spine CT on 06/10/19 revealed no acute osseous abnormality. High- grade central canal stenosis at C2-C3 and C3-C4. MRI is clinically warranted. 2. Brain CT on 06/11/19 revealed no acute intracranial abnormality. HISTORY OF PRESENT ILLNESS AND HOSPITAL COURSE: Mr. Workman is a 53-year-old male with past medical history of hypertension, prediabetes, and gastric bypass who presented to the emergency room on 06/11/19 with complaints of syncope, nausea, vomiting, and diarrhea. Please see the history and physical by SANFORD Baltazar for a complete summary of the events leading up to this hospitalization. In short, the patient had 2 syncopal events on 06/10/19 after multiple episodes of vomiting and diarrhea. Of note, his was having similar symptoms 2 days prior. During one of the events, the patient believes that he may have fallen and hit his head and/or neck and was having some subsequent neck pain. Imaging was completed as noted above. Lab findings revealed leukocytosis with white blood count of 20 and lactic acidosis with lactic of 2.7, creatinine was also elevated at 1.54. Because of these findings and need for further evaluation he was admitted by the hospitalist service. Orthostatic vitals did reveal significant orthostasis with a lying systolic pressure of 102 and a standing systolic of 70. The patient was hydrated with a total of 4 L of normal saline. Since this morning, white blood count has returned to normal. Lactic acid did resolve after IV fluids and acute kidney injury has also resolved, creatinine is back at baseline. Though the patient was meeting sepsis criteria, I believe that these findings were secondary to the viral gastroenteritis. As of this morning, the patient's symptoms have completely resolved. He has been able to eat a regular breakfast. He has not had any episodes of nausea, vomiting, or diarrhea and feels significantly better. He has been up ambulating in the room and did ambulate out in the hallway with his nurse this morning. Orthostatic vitals are repeated this morning and the patient was not orthostatic. Lying blood pressure was 113/65 and standing was 103/74. He was monitored on telemetry during this stay and had no evidence of arrhythmia though there was some concern because on admission he was noted to have a new bifascicular block and previously only had a right bundle-branch block. Regarding his neck pain, there is no obvious injury and I think he is simply going to have some musculoskeletal pain from the trauma of the fall. The patient would like to go home today. PHYSICAL EXAMINATION: On exam, he is alert and oriented x4 with no focal neurological deficits. Heart has a regular rate and rhythm without murmurs, rubs, or gallops. Lungs are clear to auscultation without rhonchi, wheezes, or rubs. Abdomen is soft, nontender to palpation. There is no edema. Physical exam is otherwise benign. Mr. Workman is stable for discharge. Most recent vital signs are as follows; temp 97.6, heart rate 63, respiratory rate 18, oxygen saturation 98% on room air , blood pressure 115/68. DISCHARGE MEDICATIONS: Continued medications: 1. Acetaminophen 650 mg p.o. q.4 hours p.r.n. pain. 2. Flexeril 10 mg p.o. b.i.d. p.r.n neck pain. Discontinued Medications: 1. Medrol. 2. Lisinopril. DISCHARGE PLAN: Mr. Workman will be discharged home. Activity will be as tolerated. Diet will be regular as tolerated. The patient has been advised to advance his diet fully. Medications are noted above. I have supplied him with a small amount of Flexeril, which has helped him while here in the hospital. 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 At this point, I have stopped the patient's lisinopril. His blood pressure at this time is 115/68 and I would like to prevent dropping his pressure any further. Regarding the neck CT findings, the patient denies any symptoms that would be indicative of central canal stenosis in the cervical spine. I have informed him on these findings and advised him that if he does experience any symptoms, he should speak with his primary care provider as he will likely need an MRI. He should follow up with his primary care provider in the next 4 to 7 days. He has been advised to return to the emergency room or nearest hospital for any worsening of symptoms, shortness of breath, lightheadedness, dizziness, chest discomfort, high fevers, chills, night sweats, loss of consciousness, or any other worrisome signs or symptoms. DISCHARGE CONDITION: Stable. DISCHARGE DISPOSITION: Home. This is a summarized report of a complex medical history and hospital stay. For further details, please see the entire medical record. TIME SPENT: Approximately 45 minutes were spent on this discharge. DOLLY COFFEY NP [id number]/[facility] #: [id number] [place]
== END 2019-06-11 15:15 | disposition home or self-care (01) ==
LOC: ED 20:31 → MEDTELE 06-11 01:21
PROVIDERS: ADMIT Physician Assistant; ATTEND Hospitalist
DX: I95.1 Orthostatic hypotension (principal); E86.0 Dehydration; A08.4 Viral intestinal infection, unspecified; N17.9 Acute kidney failure, unspecified; Z98.84 Bariatric surgery status; M54.2 Cervicalgia; Z79.899 Other long term (current) drug therapy; I45.10 Unspecified right bundle-branch block; R94.31 Abnormal electrocardiogram [ECG] [EKG]
CPT/HCPCS: 36415; 70450; 72125; 80048; 80053; 83605; 83880; 84484; 85025; 85048; 86140; 87040; 96361; 96372; 96374; 96375; 99285; A9270-GY; G0378; J1650; J1885; J2405